=== PATIENT | male | born 1970 | race Caucasian/White ===

== ENCOUNTER → 2016-11-15 | Outpatient (CLI) | payer BC ==
[2014-05-09 15:07] VITALS: BP 176/106
--- NOTE | 2016-11-15 14:25 | KCIC ---
KNEE LEFT 2V Indication: Left knee pain for 3 months. Injury occurred during exercise. . Comparison: None No acute fracture or bone destruction. Joints and soft tissues appear intact. Conclusion: No acute radiographic abnormality Electronically signed by: Yuriy Rodriguez MD (11/15/2016 2:21 PM) [id number]
== END | disposition home or self-care (01) ==
LOC: KCIC 13:33
PROVIDERS: ATTEND Family Medicine
DX: M25.562 Pain in left knee (principal)
CPT/HCPCS: 73560